=== PATIENT | male | born 1980 | race Two or more races ===

== ENCOUNTER 2022-11-23 10:25 | Emergency (ER) | payer OTHER ==
[~2022-11-23] VITALS: Ht 170.2 cm; Wt 65.8 kg
[2022-11-23] MEDS ORDERED: FLUORESCEIN SODIUM OPHTH 1 EA STRIP ONE (10:48)
[2022-11-23] MEDS: TETRACAINE HCL 0.5% OPHTALMIC 15 ML BOTTLE OP ONE (11:05)
[2022-11-23] MEDS: FLUORESCEIN SODIUM OPHTH 1 EA STRIP OP ONE (11:05)
[2022-11-23] MEDS ORDERED: ERYT3.5O9 EACHEYE (11:10)
--- NOTE | 2022-11-23 11:10 | NUR ---
AT BED SIDE FOR EVAL
--- NOTE | 2022-11-23 11:15 | NUR ---
Patient discharged to home in stable condition. Written and verbal after care instructions given. Patient verbalizes understanding of instruction.
[2022-11-23 11:17] VITALS: BP 122/84
== END 2022-11-23 11:18 | disposition home or self-care (01) ==
LOC: ER 10:33
DX: T15.01XA Foreign body in cornea, right eye, initial encounter (principal); X58.XXXA Exposure to other specified factors, initial encounter; Y93.89 Activity, other specified; Y92.89 Other specified places as the place of occurrence of the external cause; Y99.0 Civilian activity done for income or pay